=== PATIENT | male | born 1985 | race Hispanic/Latino ===

== ENCOUNTER 2016-10-26 22:31 | Emergency (ER) | payer SELFPAY ==
[~2016-10-26] VITALS: Ht 172.7 cm; Wt 66.0 kg
[2016-10-26 22:44] VITALS: BP 149/96; PULSE 85; RESP 18; O2SAT 97
[2016-10-26 23:28] VITALS: BP 141/80; PULSE 80; O2SAT 97
[2016-10-27 00:54] LABS: BASOPHILS % (AUTO) 0.5 % (0-3); MONOCYTES % (AUTO) 7.2 % (4-12); Mean Corpuscular Hemoglobin 29.4 pg (27.0-35.0); Mean Corpuscular Volume 84.1 fL (81-100); NEUTROPHILS % (AUTO) 70.2 % (40-74); Platelet Count 289 bil/L (150-400)
[2016-10-27 01:22] LABS: Magnesium 1.9 mg/dL (1.6-2.6); Phosphorus 3.2 mg/dL (2.5-4.9); TROPONIN T 0.01 ug/L (0.0-0.011)
--- NOTE | 2016-10-27 01:36 | ED.REPORT ---
HPI-Chest Pain Under 40 Date of Service October 27, 2016 ED Provider: Ramin Houser MD Patient is a 31-year-old male who presented to [facility] Emergency Department via EMS complaining of heart palpitations and chest pain while playing soccer this evening. Symptoms were accompanied by numbness in bilateral fingers, right sided head pulsations, and shortness of breath lasting for about 20 minutes. Patient's reports several episodes of the same symptoms within the last couple years. Patient has been seen in urgent care two months ago with chest pain, dyspnea, and palpitations. EKG and lipid profile was done and it was normal. Patient's risk factors include tobacco use and family history of cardiovascular disease. Patient does report a history of anxiety throughout the years. At the time of examination, patient reports resolution of all symptoms. Nursing Notes Stated Complaint: ANXIETY,RIGHT SIDED NUMBNESS Chief Complaint: Chest Pain Nursing Notes Reviewed: Yes Allergies: Coded Allergies: No Known Allergies (Unverified , 10/26/16) General Time Seen by MD: 00:15 Chief Complaint Chest pain, Shortness of breath, Other (irregular heart palpitations) Hx Obtained From: Patient Arrived By: Ambulance Onset Occurred: Just prior to arrival Context of Onset: Sports-related (while playing soccer) Location: : Chest left Quality: Heaviness, Pressure Radiation: : Does not radiate Migration/Movement: Reports: None Severity: Current: No pain currently Severity: Maximum: No pain Recent Healthcare: Previous diagnosis (atypical chest pain) Risk Factors )( CAD Risk Stratification Family history Smoking Past Medical History Past Medical History Reports anxiety Past Surgical History Reports: Inguinal hernia repair Smoking History Current Some Day Smoker Social History Alcohol Use: "Social" 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) Ambulatory Status Independent Review of Systems Constitutional: Denies: Chills, Fatigue, Fever Respiratory: Reports: Shortness of breath, Denies: Dyspnea on exertion, Pleuritic pain, Wheezing Cardiovascular: Reports: Chest pain, Palpitations, Denies: Edema, Syncope GI: Denies: Abdominal pain, Constipation, Diarrhea, Dysphagia, Nausea, Vomiting Musculoskeletal: Denies: Back pain, Extremity swelling, Joint swelling, Neck pain Skin: Denies Bruising, Denies Diaphoresis, Denies Itching, Denies Rash, Denies Unexplained bruises Neurologic: Denies: Focal weakness, Headache, Seizure, Slurred speech, Vision change Physical Exam Initial Vital Signs Vital Signs (First) Date Time Temp Pulse Resp B/P Pulse Ox O2 Delivery O2 Flow Rate FiO2 10/26/16 22:44 37.7 85 18 149/96 97 Room Air Initial VS: Reviewed, Vital signs normal Head / Eyes: Atraumatic, Normocephalic, PERRL ENT: Mucous membranes moist, Conjunctiva normal, No scleral icterus Neck: Supple, Non-tender, Full range of motion Abdomen / GI: Soft, Non-tender, No guarding, No rebound, No distention Lymphatic: No lymphadenopathy Extremities: Vascular intact, Neuro intact, No swelling, No tenderness Skin: Warm, Dry, No cyanosis Neurologic: Alert, Oriented, Nonfocal Psychiatric: Mood/affect normal, Behavior normal, Normal thought content General/Constitutional: Awake, Alert, No acute distress, Well appearing, Well developed, Well nourished, Cooperative Respiratory / Chest: Atraumatic, Breath sounds NL, No rales, No rhonchi, No wheezing Cardiovascular: Heart rate NL, Regular rhythm, No murmurs, Cap refill not delayed Lower Extremity / Pelvis / MS: No swelling, Non-tender Interpretation & Diagnostics Lab Results Interpretation Result Diagram: 10/27/16 0040 10/27/16 0040 Test 10/27/16 00:40 White Blood Count 7.9th/mm3 (3.8-10.1) Red Blood Count 5.11mil/mm3 (4.40-5.80) Hemoglobin 15.0g/dL (13.8-17.2) Hematocrit 43.0% (41.0-50.0) Mean Corpuscular Volume 84.1fL (81-100) Mean Corpuscular Hemoglobin 29.4pg (27.0-35.0) Mean Corpuscular Hemoglobin Concent 34.9% (32.0-37.0) Red Cell Distribution Width 12.7% (12.3-15.4) Platelet Count 289bil/L (150-400) Neutrophils (%) (Auto) 70.2% (40-74) Lymphocytes (%) (Auto) 19.0% (14-46) Monocytes (%) (Auto) 7.2% (4-12) Eosinophils (%) (Auto) 3.0% (0-5) Basophils (%) (Auto) 0.5% (0-3) Sodium Level 139mEq/L (134-144) Potassium Level 4.1mEq/L (3.5-5.2) Chloride Level 100mEq/L (97-108) Carbon Dioxide Level 23mmol/L (18-29) Blood Urea Nitrogen 21mg/dL (6-20) Creatinine 0.84mg/dL (0.76-1.27) Estimat Glomerular Filtration Rate 112mL/min (>59) Glucose Level 116mg/dL (60-99) Calcium Level 9.5mg/dL (8.5-10.1) Phosphorus Level 3.2mg/dL (2.5-4.9) Magnesium Level 1.9mg/dL (1.6-2.6) Total Bilirubin 0.3mg/dL (0.0-1.2) Aspartate Amino Transf (AST/SGOT) 17U/L (0-50) Alanine Aminotransferase (ALT/SGPT) 10U/L (0-44) Alkaline Phosphatase 55U/L (25-150) Troponin T 0.010ug/L (0.0-0.011) Total Protein 7.2g/dL (6.4-8.4) Albumin 4.4g/dL (3.4-5.0) Thyroid Stimulating Hormone (TSH) 1.910uIU/mL (0.450-4.500) Hold [place] Top Tube Received (Received) Lab values outside NL range: no clinical significance. ECG Interpretation Interpreted by: ED physician Normal ECG Interpretation: Normal rate (65), Normal sinus rhythm, No acute ischemic changes Re-Eval/Medical Decision Med Decision/Clinical Course 31-year-old with intermittent palpitations, and some chest discomfort. Tonight's episode was somewhat more prolonged than previous. It occurred after a vigorous game of soccer. He did not have any discomfort or palpitations while actually exerting himself. He became anxious about that and apparently hyperventilated, with classic bilateral hand tingling and numbness, now resolved. The primary issue of palpitations has yet to be evaluated. No EKG abnormalities beyond normal variant ST elevation diffusely. He needs a Holter monitor and is referred to the residency clinic to have further evaluation. There are no murmurs no other findings to suggest intrinsic cardiac disease. He is discharged in stable condition. In summary this is a 31-year-old male presenting to ED with heart palpitations and chest pain. Risk factors include smoking and family history for coronary artery disease. Cardiac workup is negative for acute coronary syndrome. EKG today did not show any acute cardiac problems. We suspect he might have PSVT. Patient will be discharged home with recommendations to establish primary care doctor as he will need a Holter monitor for further investigation of his heart palpitations. Counseled Regarding: Diagnosis, Lab results, Need for follow-up, When/why to return to ED Discharge & Departure Shift Change Sign-Out Response to Therapy: Improved Primary Impression: Atypical chest pain Additional Impressions: Chest pain on exertion PSVT (paroxysmal supraventricular tachycardia) Heart palpitations Disposition: Home Discharge Condition All VS Reviewed: Yes Condition: Stable Patient Instructions: Supraventricular Tachycardia (ED), Palpitations (ED), Chest Pain (ED) Additional Instructions: Thank you for seeking care at the emergency room today. It is difficult for us to make definitive diagnosis in the ED but we believe that you are not experiencing heart attack or other life-threatening condition. We believe that she might have paroxysmal supraventricular tachycardia (PSVT) which is episodes of rapid heart rate comes from time to time. We recommend to establish care with a primary care doctor as you will need a holter monitor to measure and record your heart activity for 24-48 hours. Call our Residency department at [phone] for a new patient primary care appointment and/or follow up of this problem. The address is [address] [place] [id number]. Consider [facility] in [facility] for future health care needs at [phone] or [phone] or [facility], or . Please return to emergency room or Call 911 immediately for severe shortness of breath or chest pressure/pain. Referrals: NOPCP (PCP) EDSupervising Provider for APC: Ramin Houser MD Attending Statement As attending of record for this patient, I conducted an independent history and physical exam, and agree with the documentation as per the resident note above, and as amended. Isabelle Avila DO October 27, 2016 01:36 Ramin Houser MD October 27, 2016 07:40
[2016-10-27 02:47] VITALS: BP 125/59; PULSE 84; RESP 20; O2SAT 95
--- NOTE | 2016-10-27 08:32 | DRSVH ---
PROCEDURE: X-RAY CHEST, TWO VIEWS ([id number]) INDICATIONS: chest pain TECHNIQUE: 2 views of the chest were acquired. COMPARISON: None. FINDINGS: Surgical changes and devices: None. Lungs and pleura: No pleural effusions or pneumothorax. Lungs are clear. Mediastinum: Mediastinal contours are normal. Heart size is normal. Bones and chest wall: No suspicious bony abnormalities. Soft tissues appear unremarkable. IMPRESSION: Negative chest. Dictated by: Wayne Banks M.D. on 10/27/2016 at 8:24 Approved by: Wayne Banks M.D. on 10/27/2016 at 8:25
== END 2016-10-27 02:46 | disposition home or self-care (01) ==
LOC: SED 22:31 → EDBD 22:31 → EDUNIT# 22:31 → SED 10-27 02:46
DX: R00.2 Palpitations (principal); I47.1 Supraventricular tachycardia; R07.89 Other chest pain; F17.200 Nicotine dependence, unspecified, uncomplicated

== ENCOUNTER 2017-01-13 05:09 | Emergency (ER) | payer SELFPAY ==
[~2017-01-13] VITALS: Ht 170.2 cm; Wt 65.9 kg
[2017-01-13 05:12] VITALS: BP 140/84; PULSE 82; RESP 16; O2SAT 98
--- NOTE | 2017-01-13 05:16 | ED.REPORT ---
HPI-General Illness Date of Service Jan 13, 2017 ED Provider: Ramin Houser MD 31 y/o male with a hx of anxiety presents to the ED complaining of intermittent palpitations that woke him up a couple of hours ago. Associated sx include shortness of breath. He associates his sx with an energy drink he had yesterday. He also reports experiencing palpitations when he last played football. He denies nausea, vomiting and cough. He is not a smoker and does not use drugs. Nursing Notes Stated Complaint: HEART PALPITATIONS Chief Complaint: Dysrhythmia/Cardiac Nursing Notes Reviewed: Yes Allergies: Coded Allergies: No Known Allergies (Unverified , 01/13/17) General Time Seen by MD: 05:15 Chief Complaint Other (palpitations) Hx Obtained From: Patient Arrived By: Walk-in Sudden in Onset?: Yes Onset Occurred: 1 - 4 hours ago Symptom Duration: Since onset Severity: Current: No pain currently Severity: Maximum: No pain Recent Healthcare: No recent doctor visit Past Medical History Past Medical History Reports anxiety Past Surgical History Reports: Inguinal hernia repair Smoking History Current Some Day Smoker Social History Alcohol Use: "Social" Drug Use: Meth Ambulatory Status Independent Review of Systems Full Review of Systems Respiratory: Reports: Shortness of breath, Denies: Non-productive cough Cardiovascular: Reports: Palpitations GI: Denies: Nausea, Vomiting Complete sys rev & neg: except as marked. Physical Exam Vital Signs Vital Signs Date Time Temp Pulse Resp B/P Pulse Ox O2 Delivery O2 Flow Rate FiO2 01/13/17 07:05 37.1 80 15 124/71 96 Room Air 01/13/17 05:12 36.4 82 16 140/84 98 Room Air Initial VS: Reviewed Head / Eyes: Atraumatic, Normocephalic, PERRL Neck: Supple, Non-tender, Full range of motion Respiratory: Breath sounds normal, Clear to auscultation, No respiratory distress Cardiovascular: Regular rate & rhythm, Heart sounds normal, Intact distal pulses Abdomen / GI: Soft, Non-tender Extremities: Vascular intact, Neuro intact, No swelling, No tenderness Skin: Warm, Dry, No cyanosis Neurologic: Alert, Oriented, Nonfocal General/Constitutional: Awake, Alert, No acute distress, Cooperative Interpretation & Diagnostics Lab Results Interpretation Result Diagram: 01/13/17 0520 01/13/17 0520 Test 01/13/17 05:20 White Blood Count 6.5th/mm3 (3.8-10.1) Red Blood Count 5.28mil/mm3 (4.40-5.80) Hemoglobin 15.4g/dL (13.8-17.2) Hematocrit 43.8% (41.0-50.0) Mean Corpuscular Volume 83.0fL (81-100) Mean Corpuscular Hemoglobin 29.2pg (27.0-35.0) Mean Corpuscular Hemoglobin Concent 35.2% (32.0-37.0) Red Cell Distribution Width 12.7% (12.3-15.4) Platelet Count 258bil/L (150-400) Neutrophils (%) (Auto) 33.0% (40-74) Lymphocytes (%) (Auto) 48.1% (14-46) Monocytes (%) (Auto) 8.7% (4-12) Eosinophils (%) (Auto) 9.1% (0-5) Basophils (%) (Auto) 0.9% (0-3) Hold Purple Top Tube Received (Received) Hold Blue Top Tube Received (Received) Sodium Level 140mEq/L (134-144) Potassium Level 3.6mEq/L (3.5-5.2) Chloride Level 103mEq/L (97-108) Carbon Dioxide Level 21mmol/L (18-29) Blood Urea Nitrogen 11mg/dL (6-20) Creatinine 0.70mg/dL (0.76-1.27) Estimat Glomerular Filtration Rate 138mL/min (>59) Glucose Level 93mg/dL (60-99) Calcium Level 9.1mg/dL (8.5-10.1) Magnesium Level 2.0mg/dL (1.6-2.6) Total Bilirubin 0.4mg/dL (0.0-1.2) Aspartate Amino Transf (AST/SGOT) 33U/L (0-50) Alanine Aminotransferase (ALT/SGPT) 18U/L (0-44) Alkaline Phosphatase 62U/L (25-150) Pro-B-Type Natriuretic Peptide 12.21pg/mL (0-86) Total Protein 7.4g/dL (6.4-8.4) Albumin 4.4g/dL (3.4-5.0) Hold [place] Top Tube Received (Received) Hold Oscar Top Tube Received (Received) ECG Interpretation ECG Interpretation: Normal sinus rhythm. Rate 75. ST elevation, probable normal early repol pattern. Time: 05:20 Interpreted by: ED physician Re-Eval/Medical Decision Med Decision/Clinical Course 31-year-old presents with palpitations that woke him up from sleep.He asymptomatic at this point. EKG 2 is negative. Electrolytes are normal. No indication of any serious pathology. He does have a history of anxiety and associates this episode with consumption of a energy drink. He is discharged now in stable condition for follow-up with PCP at the residency clinic. Source of Hx: Old records Counseled Regarding: Diagnosis Discharge & Departure Primary Impression: Heart palpitations Disposition: Home Discharge Condition All VS Reviewed: Yes Condition: Stable Referrals: [facility] Residency [facility] Scribe Attestation Portions of this note were transcribed by Ayana Latham. I,, personally performed the history, physical exam and medical decision-making;I reviewed and confirmed the accuracy of the information in the transcribed note. Signed by Kamla Banks. 01/13/17 Ramin Houser MD Jan 13, 2017 05:16 Ayana Latham Jan 13, 2017 05:41
[2017-01-13 06:01] LABS: BASOPHILS % (AUTO) 0.9 % (0-3); EOSINOPHILS % (AUTO) 9.1 % (0-5); MONOCYTES % (AUTO) 8.7 % (4-12); Mean Corpuscular Hemoglobin 29.2 pg (27.0-35.0); Platelet Count 258 bil/L (150-400)
[2017-01-13 07:05] VITALS: BP 124/71; PULSE 80; RESP 15; O2SAT 96
--- NOTE | 2017-01-13 08:24 | DRSVH ---
PROCEDURE: X-RAY CHEST, TWO VIEWS ([id number]) INDICATIONS: Shortness of breath and palpitations. TECHNIQUE: 2 views of the chest were acquired. COMPARISON: [facility], CR, XR CHEST 2VW, 10/27/2016, 0:53. FINDINGS: Surgical changes and devices: None. Lungs and pleura: No pleural effusions or pneumothorax. No acute consolidation. There is a small d ense nodule redemonstrated in the left lung base compatible with a calcified granuloma. Mediastinum: Mediastinal contours are normal. Heart size is normal. Bones and chest wall: No suspicious bony abnormalities. Soft tissues appear unremarkable. IMPRESSION: 1. No acute cardiopulmonary disease. Dictated by: Barrett Garduno M.D. on 01/13/2017 at 8:22 Approved by: Barrett Garduno M.D. on 01/13/2017 at 8:23
== END 2017-01-13 07:07 | disposition home or self-care (01) ==
LOC: SED 05:09
DX: R00.2 Palpitations (principal); R06.02 Shortness of breath; F41.9 Anxiety disorder, unspecified; F17.200 Nicotine dependence, unspecified, uncomplicated